=== PATIENT | female | born 1930 | race Caucasian/White ===

== ENCOUNTER 2017-11-09 08:05 | Emergency (ER) | payer MEDICARE, BC ==
[2017-11-09 08:23] VITALS: BP 144/74
[2017-11-09] MEDS ORDERED: Mupirocin 2% OINT* TUBE TOPICAL ONE (08:59)
--- NOTE | 2017-11-09 09:01 | UC ---
Skin Complaint HPI - HPI Summary HPI Summary: 87 yo female s/p skin tear left FA on 11/05 no cleaned well now red thinks Td is UTD no fever she cut flap off with scissors - History of Current Complaint Chief Complaint: UCSkin Time Seen by Provider: 11/09/17 08:48 Stated Complaint: SKIN COMPLAINT Hx Obtained From: Patient Onset/Duration: Sudden Onset, Lasting Days Timing: Constant Onset Severity: Mild Current Severity: None Pain Intensity: 0 Pain Scale Used: 0-10 Numeric Location: Discrete Character: Redness Aggravating Factor(s): Nothing Alleviating Factor(s): Nothing Associated Signs & Symptoms: Positive: Negative Related History: Trauma - Allergy/Home Medications Allergies/Adverse Reactions: Allergies Allergy/AdvReac Type Severity Reaction Status Date / Time No Known Allergies Allergy Verified 11/09/17 08:22 Review of Systems Constitutional: Negative Skin: Negative Eyes: Negative ENT: Negative Respiratory: Negative Cardiovascular: Negative Gastrointestinal: Negative Genitourinary: Negative Motor: Negative Neurovascular: Negative Musculoskeletal: Negative Neurological: Negative Psychological: Negative Is Patient Immunocompromised?: No All Other Systems Reviewed And Are Negative: Yes PMH/Surg Hx/FS Hx/Imm Hx Endocrine History: Dyslipidemia Cardiovascular History: Deep Vein Thrombosis Respiratory History: COPD Other History Of: Anticoagulant Therapy - Coumadin - Surgical History Surgical History: Yes Surgery Procedure, Year, and Place: csection x4. tubal ligation. appendectomy. tonsilectomy,left arm - Social History Alcohol Use: Occasionally Substance Use Type: None Smoking Status (MU): Never Smoked Tobacco Physical Exam Triage Information Reviewed: Yes Appearance: Well-Appearing, No Pain Distress, Well-Nourished Vital Signs: Initial Vital Signs Temp 97.8 F 11/09/17 08:18 Pulse 73 11/09/17 08:18 Resp 18 11/09/17 08:18 BP 144/74 11/09/17 08:18 Pulse Ox 99 11/09/17 08:18 Eyes: Positive: Conjunctiva Clear ENT: Negative: Trismus, Muffled voice, Hoarse voice Neck: Positive: Supple, Nontender Respiratory: Positive: Lungs clear, Normal breath sounds, No respiratory distress, No accessory muscle use Cardiovascular: Positive: RRR, No Murmur Musculoskeletal: Positive: ROM Intact Neurological: Positive: Alert Psychological Exam: Normal Skin Exam: Other - aboout 2 x 2.5 cm area of skin lose left FA with volar erthyema Course/Dx - Diagnoses Provider Diagnoses: skin tear left FA. cellulitis left FA Discharge - Sign-Out/Discharge Documenting (check all that apply): Discharge/Admit/Transfer - Discharge Plan Condition: Stable Disposition: HOME Referrals: Philippe Ruelas MD [Primary Care Provider] - - Billing Disposition and Condition Condition: STABLE Disposition: Home
== END 2017-11-09 09:16 | disposition home or self-care (01) ==
LOC: UCEAST 08:05
DX: S51.812A Laceration without foreign body of left forearm, initial encounter (principal); L03.114 Cellulitis of left upper limb; J44.9 Chronic obstructive pulmonary disease, unspecified
CPT/HCPCS: 99213; G0463

== ENCOUNTER 2018-06-18 09:52 | Emergency (ER) | payer MEDICARE, BC ==
[2018-06-18 10:34] VITALS: BP 121/61
--- NOTE | 2018-06-18 10:40 | UC ---
Lower Extremity/Ankle HPI - HPI Summary HPI Summary: 88 y/o female presents to the urgent care accompany by son c/o sudden onset of Rt foot pain with swelling an redness since last night. Pt reports this morning pain is radiating to her RT calf. Pt returned from [place] a week ago by plane. She can't recall any previous injury. Pain is 4/10 at rest and 7/10 with movement and unable to bear any weight. Pt states PMHX of DVT on Warfarin. Her INR on Wednesday was 2.5. Pt denies fever, open wound, SOB, palpitations, numbness or tingling sensation over the RT lower extremity, SOB, chest pain abdominal pain N/V/D, dizziness. Her son states last year she had a similar episode and wasseen at [facility] and was Rx Prednisone for a few days and symptoms improved. Pt took Tylenol PO last night to alleviate symptoms. - History of Current Complaint Chief Complaint: UCLowerExtremity Stated Complaint: R FOOT SWELLING Time Seen by Provider: 06/18/18 10:38 Hx Obtained From: Patient Onset/Duration: Gradual Onset, Lasting Days - 1 day, Still Present, Worse Since - today Severity Initially: Mild Severity Currently: Moderate Pain Intensity: 4 - at rest and 7/10 with movement Pain Scale Used: 0-10 Numeric Aggravating Factor(s): Standing, Ambulation Alleviating Factor(s): Rest, Elevation, OTC Meds Able to Bear Weight: No - Risk Factors Gout Risk Factors: Negative DVT Risk Factors: Prior DVT, Recent Travel Septic Arthritis Risk Factor: Negative - Allergies/Home Medications Allergies/Adverse Reactions: Allergies Allergy/AdvReac Type Severity Reaction Status Date / Time No Known Allergies Allergy Verified 06/18/18 10:28 Home Medications: Home Medications Warfarin TAB(*) [Coumadin TAB(*)] 5 mg PO DAILY 06/18/18 [History Confirmed 01/26] PMH/Surg Hx/FS Hx/Imm Hx Previously Healthy: Yes Endocrine History: Dyslipidemia Cardiovascular History: Cardiac Disease, Deep Vein Thrombosis Other History Of: Anticoagulant Therapy - Coumadin - Surgical History Surgical History: Yes Surgery Procedure, Year, and Place: csection x4. tubal ligation. appendectomy. tonsilectomy,left arm - Family History Known Family History: Positive: Cardiac Disease - Social History Occupation: Retired Lives: With Family Alcohol Use: Occasionally Substance Use Type: None Smoking Status (MU): Never Smoked Tobacco Review of Systems All Other Systems Reviewed And Are Negative: Yes Constitutional: Positive: Negative Skin: Positive: Other - Rt foot and ankle swelling with redness in the lateral side of foot Eyes: Positive: Negative ENT: Positive: Negative Respiratory: Positive: Negative Cardiovascular: Positive: Negative Gastrointestinal: Positive: Negative Genitourinary: Positive: Negative Motor: Positive: Negative Neurovascular: Positive: Negative Musculoskeletal: Positive: Decreased ROM - Rt ankle and Rt foot, Other: - Rt calf pain, ankle and foot pain Neurological: Positive: Negative Psychological: Positive: Negative Is Patient Immunocompromised?: No Physical Exam - Summary Physical Exam Summary: Vital Signs Reviewed: Yes Appearance: Well-Appearing, No Pain Distress, Well-Nourished, Obese old female sitting in the wheel chair w/o any apparent pain distress Eyes: Positive: Conjunctiva Clear - PERRLA< MIRACLE, fundi grossly WNL ENT: Positive: Normal ENT inspection, Hearing grossly normal, Pharynx normal, TMs normal, Uvula midline Neck: Positive: Supple, Nontender, No Lymphadenopathy Respiratory: Positive: Chest non-tender, Lungs clear, Normal breath sounds, No respiratory distress Cardiovascular: Positive: RRR, No Murmur, Pulses Normal, Brisk Capillary Refill Abdomen Description: Positive: Nontender, No Organomegaly, Soft. Negative: CVA Tenderness (R), CVA Tenderness (L) Bowel Sounds: Positive: Present Extremities: R extremity without deformity or asymmetry when compared to the L. Positive lateral side of the RT foot and ankle with with moderate soft tissue swelling and mild edema, erythema with indistinct borders and warm to touch. No lesions or break in skin integrity. Diameter of calves same. Soft tissues of posterior lower legs are soft, supple, No evidence of gangrene or compartment syndrome. Medial thigh is without soft tissue swelling or tender to palpation. Positive Homans sign. decrease ROM of the Rt ankle , and foot and toes. No proximal lymphangitis or lymphadenopathy. Neurological Exam: Normal Psychological Exam: Normal Skin Exam: Normal Triage Information Reviewed: Yes Vital Signs: Initial Vital Signs Temp 97.5 F 06/18/18 10:20 Pulse 74 06/18/18 10:20 Resp 18 06/18/18 10:20 BP 121/61 06/18/18 10:20 Pulse Ox 100 06/18/18 10:20 Lower Extremity Course/Dx - Course Course Of Treatment: 88 y/o female presents to the urgent care accompany by son c/o sudden onset of Rt foot pain with swelling an redness since last night. Pt reports this morning pain is radiating to her RT calf. Pt returned from [place] a week ago by plane. She can't recall any previous injury. Pain is 4/10 at rest and 7/10 with movement and unable to bear any weight. Pt states PMHX of DVT on Warfarin. Her INR on Wednesday was 2.5. Pt denies fever, open wound, SOB, palpitations, numbness or tingling sensation over the RT lower extremity, SOB, chest pain abdominal pain N/V/D, dizziness. Her son states last year she had a similar episode and wasseen at [facility] and was Rx Prednisone for a few days and symptoms improved. Pt took Tylenol PO last night to alleviate symptoms. Hx obtained. Pt w/ Positive lateral side of the RT foot and ankle with moderate soft tissue swelling and mild edema, erythemathous patch with indistinct borders and warm to touch. No lesions or break in skin integrity. Rivka's sign positive. Pt is hemodynamically stable, vital sings WNL. Pt probably with cellulitis of Rt foot. However Pt presnting with calf pain w/ Hx of DVT and recent travel. At this moment not ultrasound available at the clinic to r/o DVT. Pt's symptoms discussed with Dr Shannon. She recommended Pt should go to the ER for further evalaution and treatment. Pt and Pt's son advised the improtance to fo to the ER to r/o DVT since no ultrasound available. Pt offered ambulance transfer which they declined and son stated he will take Pt to the ER by Private car. Pt understood and agreed and left the clinicn hemodynamically stable, A&OX3 stating he will inmediately go to the ER. I called [facility] and spoke to BHARATHI Moscoso in regards to Pt's symptoms who accepted the patient. - Differential Dx/Diagnosis Differential Diagnosis/HQI/PQRI: Cellulitis, DVT, Infection, Sprain Provider Diagnosis: Pain of right calf, Swelling of right foot Discharge - Sign-Out/Discharge Documenting (check all that apply): Patient Departure - Pt hightly recommended All imaging exams completed and their final reports reviewed: No Studies - Discharge Plan Condition: Stable Disposition: HOME-RECOMMEND TO ED Patient Education Materials: Leg Pain (ED) Referrals: Philippe Ruelas MD [Primary Care Provider] - Additional Instructions: I think you need a higher level or care for your presenting symptoms. I highly recommend you to go to the ER for further evaluation and treatment. The risks of not going can be , PE, DVT, heart attack, etc. I spoke to the ER attending BHARATHI Moscoso. They are expecting you. - Billing Disposition and Condition Condition: STABLE Disposition: Home-Recommend to ED
== END 2018-06-18 11:05 | disposition home health service (06) ==
LOC: UCEAST 09:52
DX: M79.661 Pain in right lower leg (principal); M25.474 Effusion, right foot; Z86.718 Personal history of other venous thrombosis and embolism
CPT/HCPCS: 99211; G0463

== ENCOUNTER 2018-06-18 11:30 | Emergency (ER) | payer MEDICARE, BC ==
--- NOTE | 2018-06-18 11:51 | ED ---
Lower Extremity - HPI Summary HPI Summary: This patient is an 88 year old F presenting to [facility] upon referral from [facility] with a chief complaint of right foot pain, swelling, and erythema since 1 day ago. The patient reports that the pain worsened since 1 day ago. She notes that the pain started in the arch of her right foot. The patient rates the pain 5/10 in severity. Symptoms aggravated by palpation. Symptoms alleviated by nothing. - History of Current Complaint Chief Complaint: EDExtremityLower Stated Complaint: RIGHT FOOT PAIN Time Seen by Provider: 06/18/18 11:40 Hx Obtained From: Patient Mechanism Of Injury: Unknown Onset of Pain: Days - 1 day Onset/Duration: Worse Since - 1 day ago Severity Initially: Mild Severity Currently: Mild Pain Intensity: 5 Pain Scale Used: 0-10 Numeric Timing: Constant Location: Is Discrete @ - right foot Associated Signs And Symptoms: Positive: Swelling, Redness Aggravating Factor(s): Other - palpation Alleviating Factor(s): Nothing - Allergies/Home Medications Allergies/Adverse Reactions: Allergies Allergy/AdvReac Type Severity Reaction Status Date / Time No Known Allergies Allergy Verified 06/18/18 10:28 PMH/Surg Hx/FS Hx/Imm Hx Endocrine/Hematology History: Reports: Hx Anticoagulant Therapy - Coumadin Denies: Hx Diabetes, Hx Thyroid Disease Cardiovascular History: Reports: Hx Hypertension Denies: Hx Pacemaker/ICD Respiratory History: Reports: Hx Chronic Obstructive Pulmonary Disease (COPD) GI History: Denies: Hx Ulcer History: Denies: Hx Renal Disease Musculoskeletal History: Reports: Hx Osteoporosis Sensory History: Denies: Hx Hearing Aid Psychiatric History: Denies: Hx Panic Disorder - Cancer History Cancer Type, Location and Year: pre skin cancers Hx Chemotherapy: No Hx Radiation Therapy: No - Surgical History Surgery Procedure, Year, and Place: csection x4. tubal ligation. appendectomy. tonsilectomy,left arm Infectious Disease History: No Infectious Disease History: Denies: Hx Clostridium Difficile, Hx Hepatitis, Hx Human Immunodeficiency Virus (HIV), Hx of Known/Suspected MRSA, Traveled Outside the [place] in Last 30 Days - Family History Known Family History: Negative: Diabetes - Social History Alcohol Use: Occasionally Substance Use Type: Reports: None Smoking Status (MU): Never Smoked Tobacco Review of Systems Negative: Fever Negative: Epistaxis Negative: Vomiting Musculoskeletal: Other - right foot pain, right foot swelling Skin: Other - erythema in right foot All Other Systems Reviewed And Are Negative: Yes Physical Exam - Summary Physical Exam Summary: Appearance: The patient is well-nourished in no acute distress and in no acute pain. Skin: The skin is warm and dry and skin color reflects adequate perfusion. Right foot is erythematous. HEENT: The head is normocephalic and atraumatic. The pupils are equal and reactive. The conjunctivae are clear and without drainage. Nares are patent and without drainage. Mouth reveals moist mucous membranes and the throat is without erythema and exudate. The external ears are intact. The ear canals are patent and without drainage. The tympanic membranes are intact. Neck: The neck is supple with full range of motion and non-tender. There are no carotid bruits. There is no neck vein distension. Respiratory: Chest is non-tender. Lungs are clear to auscultation and breath sounds are symmetrical and equal. Cardiovascular: Heart is regular rate and rhythm. There is no murmur or rub auscultated. Pulses are symmetrical and equal. Good dorsalis pedis pulses. Abdomen: The abdomen is soft and non-tender. There are normal bowel sounds heard in all four quadrants and there is no organomegaly palpated. Musculoskeletal: There is no back tenderness noted. Extremities with full range of motion. There is good capillary refill. There is no calf tenderness elicited. Good dorsalis pedis pulses. Right foot mildly swollen, erythematous and tender. Neurological: Patient is alert and oriented to person, place and time. The patient has symmetrical motor strength in all four extremities. Cranial nerves are grossly intact. Deep tendon reflexes are symmetrical and equal in all four extremities. Psychiatric: The patient has an appropriate affect and does not exhibit any anxiety or depression. Triage Information Reviewed: Yes Vital Signs On Initial Exam: Initial Vitals Temp Pulse Resp BP Pulse Ox 97.0 F 74 16 148/62 100 06/18/18 11:33 06/18/18 11:33 06/18/18 11:33 06/18/18 11:33 06/18/18 11:33 Vital Signs Reviewed: Yes Diagnostics - Vital Signs Vital Signs Temp Pulse Resp BP Pulse Ox 06/18/18 11:33 97.0 F 74 16 148/62 100 - Laboratory Result Diagrams: 06/18/18 11:08 06/18/18 11:08 Lab Statement: Any lab studies that have been ordered have been reviewed, and results considered in the medical decision making process. - Radiology Right Foot XR Radiology Interpretation Completed By: Radiologist Summary of Radiographic Findings: IMPRESSION: SOFT TISSUE SWELLING, NO FRACTURE IS SEEN. Dr. Leone has reviewed this report. - Additional Comments Diagnostic Additional Comments: Venous Doppler Study: Interpreted by radiologist. Impression: no evidence for DVT. Dr. Leone has reviewed this report Lower Extremity Course/Dx - Course Course Of Treatment: Ms. Ware presented with a swollen and painful right foot that started last night. She's not aware of any injury. She is nontoxic in appearance with stable vital signs. Her right foot was mildly swollen, erythematous and tender. I don't see any skin break but I believe she has a cellulitis. She had no leukocytosis. X-ray was unremarkable and ultrasound negative for DVT. I will treat her with antibiotics and close follow-up. - Diagnoses Provider Diagnoses: Cellulitis Discharge - Sign-Out/Discharge Documenting (check all that apply): Patient Departure - Discharge home Patient Received Moderate/Deep Sedation with Procedure: No - Discharge Plan Condition: Stable Disposition: HOME Prescriptions: Cephalexin CAP* [Keflex 500 CAP*] 500 mg PO QID #40 cap Patient Education Materials: Cellulitis (ED) Referrals: Philippe Ruelas MD [Primary Care Provider] - Additional Instructions: Follow up with primary care physician in 2-3 days. Return to the emergency department with any new or worsening symptoms. - Billing Disposition and Condition Condition: STABLE Disposition: Home - Attestation Statements Document Initiated by Rosario: Yes Documenting Scribe: Maylin Odonnell Provider For Whom Rosario is Documenting (Include Credential): Reg Leone MD Scribrajinder Attestation: Maylin Bowen, scribed for eRg Leone MD on 06/18/18 at 1556. Scribe Documentation Reviewed: Yes Provider Attestation: The documentation as recorded by the Maylin raymundo accurately reflects the service I personally performed and the decisions made by me, Reg Leone MD Status of Scribe Document: Viewed
[2018-06-18 12:06] LABS: Hematocrit 39 % (35-47); Hemoglobin 12.9 g/dl (12.0-16.0); Mean Corpuscular HGB Conc 34 g/dl (31-36); Mean Corpuscular Hemoglobin 29 pg (27-31); Mean Corpuscular Volume 86 fL (80-97); Mean Platelet Volume 8.4 fL (7.4-10.4); Platelet Count 141 10^3/ul (150-450); Red Blood Count 4.46 10^6/ul (4.00-5.40); Red Cell Distribution Width 13 % (10.5-15); White Blood Count 9.4 10^3/ul (3.5-10.8)
[2018-06-18 12:16] LABS: INR 2.99 (0.77-1.02)
[2018-06-18 12:23] LABS: Albumin 4.4 g/dL (3.2-5.2); Albumin/Globulin Ratio 1.7 (1-3); BUN/Creatinine Ratio 21.7 (8-20); C Reactive Protein 33.56 mg/L (<8.01); Calcium 9.9 mg/dL (8.6-10.3); EGFR African American 97.6 (>60); EGFR Non-African American 80.7 (>60); Globulin 2.6 g/dL (2-4); Potassium 3.6 mmol/L (3.5-5.0); Total Bilirubin 0.8 mg/dL (0.2-1.0)
[2018-06-18 12:36] LABS: ABS Neutrophils 4.9 10^3/ul (1.5-7.7)
[2018-06-18 12:37] LABS: ABS Basophils 0 10^3/ul (0-0.2); ABS Eosinophils 0 10^3/ul (0-0.6)
[2018-06-18 12:38] LABS: ABS Neutrophils 4.6 10^3/ul (1.5-7.7); Immature Granulocytes 6 % (0-9); Lymphocytes % 30 %; Metamyelocytes % 1 % (0-2); Monocytes % 17 %; Myelocytes % 2 % (0-1); Neutrophil % 46 %; Variant Lymph % 1 % (0-6)
[2018-06-18 14:36] VITALS: BP 145/81
== END 2018-06-18 15:18 | disposition home or self-care (01) ==
LOC: ED 11:30
DX: L03.115 Cellulitis of right lower limb (principal); Z79.01 Long term (current) use of anticoagulants; M81.0 Age-related osteoporosis without current pathological fracture; I10 Essential (primary) hypertension; J44.9 Chronic obstructive pulmonary disease, unspecified; Z86.718 Personal history of other venous thrombosis and embolism
CPT/HCPCS: 36415; 80053; 83605; 85025; 85060; 85610; 86140; 99283

== ENCOUNTER 2018-07-05 09:11 | Emergency (ER) | payer MEDICARE, BC ==
[2018-07-05 09:26] VITALS: BP 160/73
--- NOTE | 2018-07-05 09:41 | UC ---
Skin Complaint HPI - HPI Summary HPI Summary: 88 yo female presents with left lower leg wound. She tells me that about a week ago she accidentally hit her left against a piece of furniture at home. Has a small skin tear that she has bandaged and been applying neosporin to. Over the last 2 days has noticed redness and swelling to the area. Denies fever, drainage from the site, or streaking. - History of Current Complaint Chief Complaint: UCWounds Time Seen by Provider: 07/05/18 09:41 Stated Complaint: WOUND CHECK Hx Obtained From: Patient Hx Last Menstrual Period: na Onset/Duration: Gradual Onset Current Severity: None Pain Intensity: 0 - Allergy/Home Medications Allergies/Adverse Reactions: Allergies Allergy/AdvReac Type Severity Reaction Status Date / Time No Known Allergies Allergy Verified 07/05/18 09:26 PMH/Surg Hx/FS Hx/Imm Hx Endocrine History: Dyslipidemia Cardiovascular History: Hypertension, Atrial Fibrillation Respiratory History: COPD, Asthma Other History Of: Anticoagulant Therapy - Coumadin - Surgical History Surgical History: Yes Surgery Procedure, Year, and Place: csection x4. tubal ligation. appendectomy. tonsilectomy,left arm - Family History Known Family History: Negative: Diabetes - Social History Lives: With Family Alcohol Use: Occasionally Substance Use Type: None Smoking Status (MU): Never Smoked Tobacco Review of Systems All Other Systems Reviewed And Are Negative: Yes Constitutional: Positive: Negative Skin: Positive: Other - Skin tear left lower leg Respiratory: Positive: Negative Cardiovascular: Positive: Negative Neurovascular: Positive: Negative Neurological: Positive: Negative Psychological: Positive: Negative Physical Exam - Summary Physical Exam Summary: GENERAL: NAD. WDWN. No pain distress. SKIN: LEFT LOWER LEG: posterior aspect with 1.5cm superficial skin tear with mild surrounding edema and erythema. NTTP. No warmth NECK: Supple. Nontender. No lymphadenopathy. CHEST: No accessory muscle use. Breathing comfortably and in no distress. CV: Pulses intact. Cap refill <2seconds NEURO: Alert. PSYCH: Age appropriate behavior. Triage Information Reviewed: Yes Vital Signs: Initial Vital Signs Temp 98.6 F 07/05/18 09:22 Pulse 83 07/05/18 09:22 Resp 20 07/05/18 09:22 BP 160/73 07/05/18 09:22 Pulse Ox 98 02/26/19 09:22 Vital Signs Reviewed: Yes Course/Dx - Course Course Of Treatment: Skin tear to left lower leg with mild infection. Rx for keflex and advised to keep changing dressing daily. - Diagnoses Provider Diagnosis: Skin tear Discharge - Sign-Out/Discharge Documenting (check all that apply): Patient Departure All imaging exams completed and their final reports reviewed: No Studies - Discharge Plan Condition: Stable Disposition: HOME Prescriptions: Cephalexin CAP* [Keflex CAP*] 500 mg PO BID #14 cap Patient Education Materials: Acute Wound Care (ED) Referrals: Philippe Ruelas MD [Primary Care Provider] - Additional Instructions: If you develop a fever, shortness of breath, chest pain, new or worsening symptoms - please call your PCP or go to the ED. Your blood pressure was high at todays visit. Please see your primary provider within 4 weeks for recheck and re-evaluation. Keep changing the dressing daily until well healed. - Billing Disposition and Condition Condition: STABLE Disposition: Home
== END 2018-07-05 10:07 | disposition home or self-care (01) ==
LOC: UCEAST 09:11
DX: S81.812A Laceration without foreign body, left lower leg, initial encounter (principal); L08.9 Local infection of the skin and subcutaneous tissue, unspecified; I10 Essential (primary) hypertension; J44.9 Chronic obstructive pulmonary disease, unspecified; W22.03XA Walked into furniture, initial encounter; Y92.9 Unspecified place or not applicable
CPT/HCPCS: 99212; G0463